=== PATIENT | female | born 1990 | race Caucasian/White ===

== ENCOUNTER → 2020-06-17 15:30 | Outpatient (BNVA) | payer OTHER, SELFPAY | PROVIDERS: Family Provider Family Medicine; Visit Provider Obstetrics & Gynecology | DX: Z12.4 Encounter for screening for malignant neoplasm of cervix (principal); N73.0 Acute parametritis and pelvic cellulitis; N73.9 Female pelvic inflammatory disease, unspecified; N91.2 Amenorrhea, unspecified; N91.1 Secondary amenorrhea; N93.8 Other specified abnormal uterine and vaginal bleeding | CPT/HCPCS: 83001; 84146; 84443; 84702; 85025; 87491; 87591; 88175 ==

== ENCOUNTER → 2020-06-19 09:35 | Outpatient (BNVA) | payer OTHER, SELFPAY | PROVIDERS: Family Provider Family Medicine; Visit Provider Obstetrics & Gynecology | DX: N91.2 Amenorrhea, unspecified (principal) | CPT/HCPCS: 76830 ==

== ENCOUNTER 2022-03-31 11:08 | Observation (INO) | payer OTHER, SELFPAY ==
[2022-03-31] VITALS (10 sets, daily range): BP systolic 132–155; BP diastolic 74–109; PULSE 76–92; RESP 15–20; TEMP 36.8–37.2; O2SAT 97–98; BMI 43.0
[2022-03-31 11:39] LABS: Basophils # 0.1 10^3/uL (0.0-0.1); Basophils % 0.6 %; Eosinophils # 0.1 10^3/uL (0.0-0.8); Eosinophils % 0.9 %; Hematocrit 44.9 % (37.0-47.0); Hemoglobin 14.7 g/dL (11.5-15.3); Lymphocytes # 3.4 10^3/uL (0.8-4.8); Mean Corpuscular HGB Conc 32.7 g/dL (30.0-36.0); Mean Corpuscular Hemoglobin 29.2 pg (28.0-34.0); Mean Corpuscular Volume 89.3 fl (81-99); Mean Platelet Volume 11.4 fL (7.4-10.4); Monocytes # 0.6 10^3/uL (0.2-0.9); Monocytes % 5.1 %; Neutrophils # 8.19 10^3/uL (1.8-7.7); Neutrophils % 65.6 %; Nucleated Red Blood Cells % 0 %; Platelet Count 228 10^3/cmm (130-400); Red Blood Count 5.03 10^6/uL (4.1-5.3); Red Cell Distribution Width 12.1 % (12.1-15.1); White Blood Count 12.5 10^3/uL (4.0-10.0)
[2022-03-31 12:01] LABS: Alanine Aminotransferase 33 U/L (0-33); Alkaline Phosphatase 105 U/L (35-105); Aspartate Amino Transferase 24 U/L (0-32); Blood Urea Nitrogen 7 mg/dL (6-20); Calcium 9.8 mg/dL (8.5-10.5); Carbon Dioxide 24 mmol/L (22-29); Chloride 101 mmol/L (98-107); Globulin 3.4 g/dL (1.3-4.6); Glomerular Filtration Rate 115.9 mL/min (90-130); Glucose 104 mg/dL (65-115); Lipase 26 U/L (13-60); Osmolality Calculated 278 mOsm/kg (285-295); Sodium 135 mmol/L (136-145); Total Bilirubin 0.6 mg/dL (0.15-1.2); Total Protein 7.4 g/dL (6.6-8.7)
[2022-03-31 12:06] LABS: Anion Gap 14.3 (5-19); Potassium 4.3 mmol/L (3.5-5.1)
[2022-03-31] MEDS: morphine 4 mg/mL SDV 1 mL IVP ×2 (12:10→12:48)
[2022-03-31] MEDS: sodium chloride 0.9% 1,000 ML 999 ML IV (12:16)
[2022-03-31] MEDS: ondansetron 2 mg/ML SDV 2 mL 4 MG IVP ×2 (12:19→22:46)
[2022-03-31 12:26] LABS: Bilirubin Urine Negative (Negative); Blood Urine Large (Negative); Glucose Urine UA Negative (Normal); Ketones Urine Negative (Negative); Leukocyte Esterase Urine 1+; Nitrate Urine Positive; Protein Urine 1+ (Negative); Urine Appearance Clear (CLEAR); Urine Color Yellow (Yellow); Urobilinogen Urine 0.2 mg/dL (Negative)
--- NOTE | 2022-03-31 12:31 | CT_ITS ---
WS: [id number] CT ABDOMEN AND PELVIS NONCONTRAST HISTORY: flank pain, LEFT lower quadrant pain. TECHNIQUE: Imaging performed through the abdomen and pelvis. Coronal and sagittal reformats are submi tted. All CT scans at [facility] use at least one of these dose optimization techniques: auto mated exposure control; mA and/or kV adjustment per patient size (includes targeted exams where dose is matched to clinical indication); or iterative reconstruction. DLP: 1602.95 mGy.cm COMPARISON: 03/12/2016 Lower thorax: Lung bases are clear. Visualized heart is normal. No hiatal hernia. Liver: Mild hepatomegaly with diffuse hepatic steatosis. No bile duct dilatation. Gallbladder: Prior cholecystectomy. Pancreas: Normal size and attenuation. Normal pancreatic duct. No pancreatitis or mass. Spleen: Normal. Adrenal glands: Normal. No mass. Right kidney: Normal size kidney. 2 mm nonobstructing calcification lower pole. No ureteral calcifica tion or obstruction. Left kidney: Normal size kidney with no mass or hydronephrosis. Aorta: Normal abdominal aorta, no aneurysm or atherosclerosis. No free fluid, intraperitoneal air or significant lymphadenopathy. GI tract: Nondistended stomach. No small bowel obstruction. Mild constipation. Normal appendix. There are a few diverticula within the distal colon but no evidence for acute diverticulitis. Abdominal wall: Negative. No hernia. Pelvis: Artifact through the pelvis due to patient's body habitus. The uterus is present. Both ovarie s are identified. No free fluid or adenopathy. Osseous structures: Unremarkable. CT/CT kidney stone [id number] IMPRESSION: 1. Normal appendix. 2. No hydronephrosis. 3. 2 mm nonobstructing ossification lower pole RIGHT kidney. 4. Minimal diverticular disease without acute diverticulitis. 5. Hepatic steatosis and mild hepatomegaly. 6. Prior cholecystectomy.
[2022-03-31 12:34] LABS: Add Urine Microscopic? YES
[2022-03-31 12:35] LABS: Add Urine Culture? Yes; Bacteria Urine 1+ /hpf; RBC Urine 0-4 /hpf (0-2); Squamous Epithelial Cell Urine 0-4 /hpf (0-5); WBC Urine 40-55 /hpf (0-5)
--- NOTE | 2022-03-31 13:00 | ED_ITS ---
HPI - Abdominal Pain General: Chief Complaint: Abdominal Pain Stated Complaint: Lower abd pain Time Seen by Provider: 03/31/22 11:29 Source: patient Mode of arrival: ambulatory Limitations: no limitations History of Present Illness: 31-year-old female with a remote history of renal nephrolithiasis presents to the emergency room with complaints of left flank pain for the last 3 to 4 days progressively worse to the point where she could not tolerate Tuesday. She has noted gross hematuria at times she denies any dysuria urgency or frequency. Pain is radiating down into the groin severe enough to double her over. No fever sweats or chills. MD elicited complaint: flank pain Pertinent past history: kidney stones Onset (ago): day(s) (4) Pain Consistency: constant Location: L flank Quality: cramping Radiation: none Exacerbating factors: nothing Relieving factors: nothing Associated Symptoms: Denies anorexia, belching, bloating, change in bowel habits, change in stool character, chills, coffee ground emesis, constipation, GI cramping, diarrhea, dyspepsia, dysuria, excessive flatus, fever(s), heartburn, hematochezia, hematuria, hematemesis, fecal incontinence, loose stools, melena, nausea, poor appetite, syncope and vomiting Review of Systems Const: Denies: fever(s), chills, fatigue or malaise ENMT: Denies: throat pain, ear or mastoid pain, nasal discharge or nasal congestion Card: Denies: chest pain, palpitations, irregular heart rhythm or syncope Resp: Denies: dyspnea, productive cough or non-productive cough GI: Denies: abdominal pain, nausea, vomiting, hematemesis, coffee ground emesis, heartburn, diarrhea, constipation, bloating, GI cramping, belching, excessive flatus, fecal incontinence, change in bowel habits, change in stool character, hematochezia or melena : Denies: flank pain, difficulty voiding, dysuria, urinary frequency or hematuria Skin/Breast: Denies: rash or pruritus PFSH ED PFSH: Medical History Amenorrhea H/O facial injury reconstructive facial surgery- as a young child-- several surgeries to repair Nephrolithiasis PCOS (polycystic ovarian syndrome) Surgical History S/P cholecystectomy 04/2010 Family History Mother Heart disease Hypertension Diabetes Stroke Hyperlipidemia Thyroid condition Anesthesia complication Uterine cancer, Onset Age: 27 Ovarian cancer, Onset Age: 27 Father Diabetes Stroke Hyperlipidemia Heart disease Grandmother Ovarian cancer maternal 28, paternal 27 Uterine cancer maternal and paternal 20's Family/Other Ovarian cancer maternal aunts and cousins, all diagnosed prior to 30 years of age Uterine cancer maternal aunts and cousins Denies family history of Colon cancer Clotting disorder Breast cancer Bleeding disorder Social History Alcohol intake: never Physical Exam Const: COMMON NORMALS: no acute distress GENERAL APPEARANCE: cooperative and comfortable ORIENTATION/CONSCIOUSNESS: Yes awake, Yes oriented to person, Yes oriented to place and Yes oriented to time HENMT: COMMON NORMALS: normocephalic, atraumatic and hearing grossly normal bilaterally HEAD & SCALP: normocephalic and atraumatic Resp: COMMON NORMALS: normal respiratory effort, No retractions, No use of accessory muscles and clear to auscultation bilaterally AUSCULTATION: clear to auscultation bilaterally Cardio: COMMON NORMALS: regular rate, regular rhythm and No murmurs present (Cardio) RATE: regular rate RHYTHM: regular rhythm GI: COMMON NORMALS: Soft to palpation and No hepatosplenomegaly present AUSCULTATION: Yes normoactive bowel sounds PALPATION: Yes Soft to palpation, No Tenderness to palpation present (GI), No Guarding due to palpation present (GI) and Yes No hepatosplenomegaly present Extremity: COMMON NORMALS: normal to inspection, capillary refill normal, no clubbing, cyanosis or edema, no calf tenderness and no pedal edema Neuro: SENSORIUM/ORIENTATION: Yes oriented to person, Yes oriented to place and Yes oriented to time Skin: COMMON NORMALS: no rashes or lesions noted GENERAL SKIN EXAM: no rashes or lesions noted Course Vital Signs: Vital signs: Vital Signs Temperature 98.2 F 03/31/22 11:48 Pulse Rate 76 03/31/22 15:00 Respiratory Rate 18 03/31/22 16:37 Blood Pressure 155/109 03/31/22 11:48 Pulse Oximetry 98 03/31/22 15:00 Oxygen Delivery Me thod 03/31/22 11:48 MDM - Abdominal Pain Medical Decision Making Stone in the right kidney but none in the ureter I think she has a fairly significant pyelonephritis she is having quite a bit of pain. White count is elevated we will go ahead and admit her given 2 g Rocephin here she has had cultures discussed with Dr. Urena. We will admit treat with antibiotics and monitor. Medical Records I reviewed the patient's medical records. Lab Data I reviewed the patient's lab results. : 03/31/22 11:34 03/31/22 11:34 Labs/Radiology: Radiology Impressions Abdomen/Pelvis CT 03/31/22 12:31 IMPRESSION: 1. Normal appendix. 2. No hydronephrosis. 3. 2 mm nonobstructing ossification lower pole RIGHT kidney. 4. Minimal diverticular disease without acute diverticulitis. 5. Hepatic steatosis and mild hepatomegaly. 6. Prior cholecystectomy. Laboratory Results WBC 12.5 10^3/uL (4.0-10.0) H 03/31/22 11:34 RBC 5.03 10^6/uL (4.1-5.3) 03/31/22 11:34 Hgb 14.7 g/dL (11.5-15.3) 03/31/22 11:34 Hct 44.9 % (37.0-47.0) 03/31/22 11:34 MCV 89.3 fl (81-99) 03/31/22 11:34 MCH 29.2 pg (28.0-34.0) 03/31/22 11:34 MCHC 32.7 g/dL (30.0-36.0) 03/31/22 11:34 RDW 12.1 % (12.1-15.1) 03/31/22 11:34 Plt Count 228 10^3/cmm (130-400) 03/31/22 11:34 MPV 11.4 fL (7.4-10.4) H 03/31/22 11:34 Neut % (Auto) 65.6 % 03/31/22 11:34 Lymph % (Auto) 27.0 % 03/31/22 11:34 [place] % (Auto) 5.1 % 03/31/22 11:34 Eos % (Auto) 0.9 % 03/31/22 11:34 Baso % (Auto) 0.6 % 03/31/22 11:34 Neut # (Auto) 8.19 10^3/uL (1.8-7.7) H 03/31/22 11:34 Lymph # (Auto) 3.4 10^3/uL (0.8-4.8) 03/31/22 11:34 [place]inger # (Auto) 0.6 10^3/uL (0.2-0.9) 03/31/22 11:34 Eos # (Auto) 0.1 10^3/uL (0.0-0.8) 03/31/22 11:34 Baso # (Auto) 0.1 10^3/uL (0.0-0.1) 03/31/22 11:34 Nucleated RBC % (auto) 0 % 03/31/22 11:34 Nucleated RBCs # 0.0 /100WBC 03/31/22 11:34 Sodium 135 mmol/L (136-145) L 03/31/22 11:34 Potassium 4.3 mmol/L (3.5-5.1) 03/31/22 11:34 Chloride 101 mmol/L (98-107) 03/31/22 11:34 Carbon Dioxide 24 mmol/L (22-29) 03/31/22 11:34 Anion Gap 14.3 (5-19) 03/31/22 11:34 BUN 7 mg/dL (6-20) 03/31/22 11:34 Creatinine 0.6 mg/dL (0.5-0.9) 03/31/22 11:34 GFR Calculation 115.9 mL/min (90-130) 03/31/22 11:34 Glucose 104 mg/dL (65-115) 03/31/22 11:34 Calculated Osmolality 278 mOsm/kg (285-295) L 03/31/22 11:34 Lactic Acid 0.8 mmol/L (0.5-2.2) 03/31/22 15:56 Calcium 9.8 mg/dL (8.5-10.5) 03/31/22 11:34 Total Bilirubin 0.6 mg/dL (0.15-1.2) 03/31/22 11:34 AST 24 U/L (0-32) 03/31/22 11:34 ALT 33 U/L (0-33) 03/31/22 11:34 Alkaline Phosphatase 105 U/L (35-105) 03/31/22 11:34 Total Protein 7.4 g/dL (6.6-8.7) 03/31/22 11:34 Albumin 4.0 g/dL (3.5-5.2) 03/31/22 11:34 Globulin 3.4 g/dL (1.3-4.6) 03/31/22 11:34 Lipase 26 U/L (13-60) 03/31/22 11:34 Procalcitonin 0.04 ng/mL (0-0.5) 03/31/22 15:56 Urine Color Yellow (Yellow) 03/31/22 12:20 Urine Appearance Clear (CLEAR) 03/31/22 12:20 Urine pH 6.0 (5-7) 03/31/22 12:20 Ur Specific [place] 1.010 (1.005-1.030) 03/31/22 12:20 Urine Protein 1+ (Negative) A 03/31/22 12:20 Urine Glucose (UA) Negative (Normal) 03/31/22 12:20 Urine Ketones Negative (Negative) 03/31/22 12:20 Urine Blood Large (Negative) A 03/31/22 12:20 Urine Nitrate Positive 03/31/22 12:20 Urine Bilirubin Negative (Negative) 03/31/22 12:20 Urine Urobilinogen 0.2 mg/dL (Negative) 03/31/22 12:20 Ur Leukocyte Esterase 1+ 03/31/22 12:20 Urine RBC 0-4 /hpf (0-2) H 03/31/22 12:20 Urine WBC 40-55 /hpf (0-5) H 03/31/22 12:20 Ur Squamous Epith Cells 0-4 /hpf (0-5) H 03/31/22 12:20 Amorphous Sediment Not Reportable 03/31/22 12:20 Urine Bacteria 1+ /hpf (NONE) H 03/31/22 12:20 Urine HCG, Qual Negative (Negative) 03/31/22 12:20 Discharge Plan Discharge Patient Disposition: Admitted As Inpatient Clinical Impression: Pyelonephritis Condition: Stable Prescriptions: No Action Azo 95 mg Tablet 95 mg PO TID PRN (Reason: Urinary Retention) Midol 500-25 mg Tablet 1 tab PO Q6H PRN (Reason: Pain) Flonase Allergy Relief 50 mcg/actuation [place],Suspension 1 spray INTRANASAL BID Rx Instructions: administer into each nostril Referrals: Mika Dyer MD [Primary Care Provider] - Coding Level of Care Code ED Service And Repair Supervisor for Chg Fwd Exam Detailed
[2022-03-31] MEDS: HYDROmorphone 1 mg/mL INJ 1 mL 0.5 MG IVP (13:41)
[2022-03-31] MEDS: cefTRIAXone 2,000 MG in sodium chloride 0.9% (plus) 50 ML 100 MG IV (14:12)
--- NOTE | 2022-03-31 15:47 | PM.HP ---
Providers/Chief Complaint Primary Care Provider: Mika Dyer MD Chief Complaint: Lower abd pain History of Present Illness Sharri Chaney is a 31 year old female Medications/Allergies Home Medications Medication Instructions Recorded Confirmed Last Taken Type acetaminophen-pamabrom 500 mg-25 1 tab PO Q6H PRN Pain 03/31/22 03/31/22 03/30/22 History mg tablet (Midol) fluticasone propionate 50 1 spray intranasal BID 03/31/22 03/31/22 03/31/22 History mcg/actuation nasal spray,suspension (Flonase Allergy Relief) phenazopyridine 95 mg tablet 95 mg PO TID PRN Urinary Retention 03/31/22 03/31/22 Unknown History Allergies Allergy/AdvReac Type Severity Reaction Status Date / Time No Known Allergies Allergy Verified 03/31/22 14:22 PFSH Acute PFSH: Medical History (Updated 03/31/22 @ 13:06 by Haja Ryan DO) Amenorrhea H/O facial injury reconstructive facial surgery- as a young child-- several surgeries to repair Nephrolithiasis PCOS (polycystic ovarian syndrome) Surgical History (Updated 03/31/22 @ 13:06 by Haja Ryan DO) S/P cholecystectomy 04/2010 Family History Mother Heart disease Hypertension Diabetes Stroke Hyperlipidemia Thyroid condition Anesthesia complication Uterine cancer, Onset Age: 27 Ovarian cancer, Onset Age: 27 Father Diabetes Stroke Hyperlipidemia Heart disease Grandmother Ovarian cancer maternal 28, paternal 27 Uterine cancer maternal and paternal 20's Family/Other Ovarian cancer maternal aunts and cousins, all diagnosed prior to 30 years of age Uterine cancer maternal aunts and cousins Denies family history of Colon cancer Clotting disorder Breast cancer Bleeding disorder Social History Alcohol intake: never Vitals/I&O/Wt Last Vital Signs Temp 98.2 F 03/31/22 11:48 Pulse 76 03/31/22 15:00 Resp 18 03/31/22 13:41 BP 155/109 03/31/22 11:48 Pulse Ox 98 03/31/22 15:00 O2 Del Method 03/31/22 11:48 Weight last 48 hrs Weight 136.078 kg Data : 03/31/22 11:34 03/31/22 11:34 Micro: Microbiology 03/31/22 13:52 Blood Culture - Preliminary Blood SPECIMEN COLLECTED 03/31/22 14:10 Blood Culture - Preliminary Blood SPECIMEN COLLECTED Coding Level of Care Code Acute Fisherman Helper for Audra Yang
--- NOTE | 2022-03-31 16:02 | PM.HP ---
Providers/Chief Complaint Primary Care Provider: Mika Dyer MD Chief Complaint: Lower abd pain History of Present Illness Sharri Chaney is a 31 year old female symptoms started around the weekend with flank pain which gradually got worse to the point where she could not bear her pain. She has not noticed any fever, nausea or vomiting. She has history of stones, she usually gets better with passage of stone but this time no stone noticed in her urine. She is experiencing dysuria. She has not noticed any chest pain, shortness of breath, recurrent emesis. In the ER she has been diagnosed with nonobstructing 2 mm stone with pyonephritis She has been given antibiotics in the ER she is not septic white count is 12.5 We do not have urology coverage however she does not meet criteria to be transferred there is no need to extract the stone at this point, she is experiencing a lot of pain requiring opioids patient is stating she does not drink a lot of soda, she has quit smoking 3 weeks ago, does not drink alcohol, she drinks hot tea in the morning and iced tea in the evening Review of Systems Const: Reports: chills and body aches; Denies: fever(s) Eyes: Denies: change in vision ENMT: Denies: throat pain Card: Denies: chest pain Resp: Denies: dyspnea GI: Reports: abdominal pain and nausea : Reports: flank pain Musc: Denies: neck pain Skin/Breast: Denies: rash Neuro: Denies: headache(s) Psych: Reports: anxiety Endo: Denies: polyuria Daren/Lymph: Denies: easy bruising All/Imm: Denies: urticaria Medications/Allergies Home Medications Medication Instructions Recorded Confirmed Last Taken Type acetaminophen-pamabrom 500 mg-25 1 tab PO Q6H PRN Pain 03/31/22 03/31/22 03/30/22 History mg tablet (Midol) fluticasone propionate 50 1 spray intranasal BID 03/31/22 03/31/22 03/31/22 History mcg/actuation nasal spray,suspension (Flonase Allergy Relief) phenazopyridine 95 mg tablet 95 mg PO TID PRN Urinary Retention 03/31/22 03/31/22 Unknown History Allergies Allergy/AdvReac Type Severity Reaction Status Date / Time No Known Allergies Allergy Verified 03/31/22 14:22 PFSH Acute PFSH: Medical History Amenorrhea H/O facial injury reconstructive facial surgery- as a young child-- several surgeries to repair Nephrolithiasis PCOS (polycystic ovarian syndrome) Surgical History S/P cholecystectomy 04/2010 Family History Mother Heart disease Hypertension Diabetes Stroke Hyperlipidemia Thyroid condition Anesthesia complication Uterine cancer, Onset Age: 27 Ovarian cancer, Onset Age: 27 Father Diabetes Stroke Hyperlipidemia Heart disease Grandmother Ovarian cancer maternal 28, paternal 27 Uterine cancer maternal and paternal 20's Family/Other Ovarian cancer maternal aunts and cousins, all diagnosed prior to 30 years of age Uterine cancer maternal aunts and cousins Denies family history of Colon cancer Clotting disorder Breast cancer Bleeding disorder Social History Alcohol intake: never Vitals/I&O/Wt Last Vital Signs Temp 98.2 F 03/31/22 11:48 Pulse 76 03/31/22 15:00 Resp 18 03/31/22 13:41 BP 155/109 03/31/22 11:48 Pulse Ox 98 03/31/22 15:00 O2 Del Method 03/31/22 11:48 Weight last 48 hrs Weight 136.078 kg Physical Exam Narrative: Patient is awake and alert Nonfocal neuro exam Morbidly obese Currently on room air Complaining of flank pain Abdomen is soft Bowel sound present Awake and alert Nonfocal neuro exam Doing well on room air CVA tenderness positive Hypertensive secondary to pain Data : 03/31/22 11:34 03/31/22 11:34 Micro: Microbiology 03/31/22 13:52 Blood Culture - Preliminary Blood SPECIMEN COLLECTED 03/31/22 14:10 Blood Culture - Preliminary Blood SPECIMEN COLLECTED A&P Assessment and plan (1) Nephrolithiasis: (2) Pyelonephritis: Plan Nonobstructing 2 mm stone with pyelonephritis No active signs of sepsis, afebrile No need for urgent urological intervention needed Start IV antibiotics Continue IV fluids We will give her amlodipine and tamsulosin to relax smooth muscles in the sphincter Hopefully she will be able to pass her stone to relieve her symptoms Will give her opioids along bowel regimen Full code Regular diet DVT prophylaxis on board Patient has quit smoking 3 weeks ago Does not drink alcohol Drinks tea twice a day with honey Previous history of nephrolithiasis We will add Pyridium which will change urine color to orange Attestations Medical Necessity Statement*: Anticipating discharge within 42 hours will need IV antibiotics for pyelonephritis and pain control Time Spent in Patient Care: 40 Coding Level of Care Code Acute Tugboat Dispatcher for Audra Yang Diagnoses Nephrolithiasis N20.0 Pyelonephritis N12
[2022-03-31 16:27] LABS: Lactic Sepsis W/Reflex 0.8 mmol/L (0.5-2.2)
[2022-03-31 16:32] LABS: Procalcitonin 0.04 ng/mL (0-0.5)
[2022-03-31] MEDS: sodium chloride 0.9% 1,000 ML 125 ML IV (16:36)
[2022-03-31] MEDS: HYDROmorphone 1 mg/mL INJ 1 mL IVP (16:37)
[2022-03-31] MEDS: phenazopyridine 100 mg Tablet PO ×2 (16:48→20:50)
[2022-03-31] MEDS: tamsulosin 0.4 mg Capsule PO (16:48)
[2022-03-31] MEDS: heparin 5,000 unit/mL INJ 1 mL 5000 UNIT SUBCUT (16:48)
--- NOTE | 2022-03-31 17:52 | PC.NURSE ---
ATTEMPTED REPORT NURSE UNAVAILABLE.
[2022-03-31] MEDS: HYDROmorphone 1 mg/mL INJ 1 mL 0.4 MG IVP (20:58)
[2022-03-31] MEDS: diphenhydrAMINE 25 mg Capsule PO (22:45)
[2022-04-01] VITALS (9 sets, daily range): BP systolic 124–145; BP diastolic 83–88; PULSE 75–84; RESP 16–18; TEMP 36.4–36.8; O2SAT 97–98
[2022-04-01] MEDS: sodium chloride 0.9% 1,000 ML 125 ML IV (00:45)
[2022-04-01] MEDS: HYDROmorphone 1 mg/mL INJ 1 mL 0.4 MG IVP ×2 (00:52→06:01)
[2022-04-01 04:59] LABS: Basophils % 0.5 %; Eosinophils # 0.1 10^3/uL (0.0-0.8); Eosinophils % 1.6 %; Hematocrit 38.8 % (37.0-47.0); Hemoglobin 12.6 g/dL (11.5-15.3); Lymphocytes # 3.1 10^3/uL (0.8-4.8); Lymphocytes % 36.7 %; Mean Corpuscular HGB Conc 32.5 g/dL (30.0-36.0); Mean Corpuscular Hemoglobin 29.3 pg (28.0-34.0); Mean Corpuscular Volume 90.2 fl (81-99); Mean Platelet Volume 12.1 fL (7.4-10.4); Monocytes # 0.5 10^3/uL (0.2-0.9); Monocytes % 6.5 %; Neutrophils # 4.48 10^3/uL (1.8-7.7); Nucleated Red Blood Cells % 0 %; Platelet Count 181 10^3/cmm (130-400); Red Cell Distribution Width 12.2 % (12.1-15.1); White Blood Count 8.3 10^3/uL (4.0-10.0)
[2022-04-01 05:00] LABS: Bilirubin Urine Negative (Negative); Blood Urine Small (Negative); Glucose Urine UA 1+ (Normal); Ketones Urine Negative (Negative); Leukocyte Esterase Urine Trace; Nitrate Urine Positive; Protein Urine Trace (Negative); Urine Appearance Clear (CLEAR); Urine Color Orange (Yellow); pH Urine 5.5 (5-7)
[2022-04-01 05:10] LABS: Add Urine Microscopic? YES
[2022-04-01 05:14] LABS: Add Urine Culture? No; Bacteria Urine 1+ /hpf; Oval Fat Bodies Urine 1+ /hpf; RBC Urine 0-4 /hpf (0-2); Squamous Epithelial Cell Urine 0-4 /hpf (0-5); WBC Urine 15-25 /hpf (0-5)
[2022-04-01 05:27] LABS: Alanine Aminotransferase 42 U/L (0-33); Albumin Level 3.4 g/dL (3.5-5.2); Alkaline Phosphatase 108 U/L (35-105); Anion Gap 13.2 (5-19); Aspartate Amino Transferase 30 U/L (0-32); Blood Urea Nitrogen 6 mg/dL (6-20); Calcium 8.9 mg/dL (8.5-10.5); Carbon Dioxide 24 mmol/L (22-29); Chloride 106 mmol/L (98-107); Globulin 3.2 g/dL (1.3-4.6); Glucose 100 mg/dL (65-115); Magnesium 2.3 mg/dL (1.7-2.3); Osmolality Calculated 286 mOsm/kg (285-295); Potassium 4.2 mmol/L (3.5-5.1); Sodium 139 mmol/L (136-145); Total Bilirubin 0.6 mg/dL (0.15-1.2); Total Protein 6.6 g/dL (6.6-8.7)
[2022-04-01] MEDS: heparin 5,000 unit/mL INJ 1 mL 5000 UNIT SUBCUT ×2 (05:59→16:26)
--- NOTE | 2022-04-01 07:43 | PC.NURSE ---
@0600 pt reported missing $1800, pt stated I had it on me yesterday morning and those girls couldn't get my shirt off fast enough , pt stated he had $1000 in one clip and $800 in another clip, patient stated last time he saw it was yesterday morning when he came here. call placed to to ask if she might know anything about it and stated I wouldn't know if he had money on him or not , nurse asked pt to ask pt sister who was here yesterday about pt money, charge nurse notified, during bedside report pt stated that he talked with his brother and sister and renita has his money.
[2022-04-01] MEDS: diphenhydrAMINE 25 mg Capsule PO ×2 (07:45→20:20)
--- NOTE | 2022-04-01 07:50 | PC.NURSE ---
pt refused cath placement all noc, educated related to need for cath and pt continue to refuse urine strained and small particles noted
[2022-04-01] MEDS: cefTRIAXone 1,000 MG in sodium chloride 0.9% (plus) 50 ML 100 MG IV (07:52)
[2022-04-01] MEDS: amlodipine 5 mg Tablet PO (08:31)
[2022-04-01] MEDS: tamsulosin 0.4 mg Capsule PO (08:31)
[2022-04-01] MEDS: sennosides-docusate Tablet 1 TAB PO (08:31)
[2022-04-01] MEDS: phenazopyridine 100 mg Tablet PO ×3 (08:38→20:20)
--- NOTE | 2022-04-01 09:06 | PC.NURSE ---
I was in the room with the patient when Dr. Queen said that since she is eating her fluids may be discontinued. We will continue the antibiotic but the fluids may be stopped.
--- NOTE | 2022-04-01 10:06 | PM.PN ---
Subjective Subjective: Patient passed stone this morning I have sent stone for analysis Afebrile No leukocytosis Pain is well managed Still feeling nauseous no active emesis Able to tolerate diet Discontinue fluids Continue antibiotics possible discharge tomorrow patient is agreeable Vitals/I&O/Wt Last Vital Signs Temp 97.6 F 04/01/22 07:44 Pulse 75 04/01/22 07:44 Resp 17 04/01/22 07:44 BP 141/88 04/01/22 07:44 Pulse Ox 97 04/01/22 07:44 O2 Del Method 04/01/22 07:44 03/31/22 04/01/22 04/01/22 22:59 06:59 14:59 Intake Total 1050 / 1050 1000 / 2050 1290 / 1290 Output Total 500 / 500 Balance 1050 / 1050 500 / 1550 1290 / 1290 Weight last 48 hrs Weight 136.078 kg Physical Exam Narrative: Patient is laying supine Abdomen is soft Nontender Awake and alert Nonfocal neuro exam Currently on room air EOMI, PERRLA S1, S2 Flank tenderness has improved significantly since yesterday Data : 04/01/22 04:22 04/01/22 04:22 Micro: Microbiology 03/31/22 12:20 Urine Culture - Preliminary Urine,Clean Catch Gram Negative Rods 03/31/22 13:52 Blood Culture - Preliminary Blood SPECIMEN COLLECTED 03/31/22 14:10 Blood Culture - Preliminary Blood SPECIMEN COLLECTED A&P Assessment and plan (1) Pyelonephritis: (2) Nephrolithiasis: Plan Pyelonephritis No signs of sepsis No active emesis Plan to discharge her tomorrow Patient passed kidney stones today Will send stone for analysis Continue IV antibiotic Discontinue fluids Continue diet Opioids with bowel regimen Plan for discharge tomorrow DVT prophylaxis on board Full code Attestations Medical Necessity Statement*: Discharge tomorrow Time Spent in Patient Care: 40 Coding Level of Care Code Acute Compensation And Benefits Manager for [facility] Fwd Diagnoses Pyelonephritis N12 Nephrolithiasis N20.0
--- NOTE | 2022-04-01 10:59 | PC.NURSE ---
Patient resting in room. Reports no pain but does report burning sensation in urinary tract. Refusing morphine at this time. Does want to hold off on the urinary catheter as well.
[2022-04-01] MEDS: ondansetron 2 mg/ML SDV 2 mL 4 MG IVP (13:49)
[2022-04-01] MEDS: acetaminophen 325 mg Tablet PO (13:50)
--- NOTE | 2022-04-01 15:44 | PC.NURSE ---
I went downstairs to collect the bladder scanner to scan Ms. Chaney and when I got back up on the floor I was told my patient was not in the room. Mami Osborn RN, and myself walked to each entrance of the hospital looking for her and couldn't locate her. When I returned upstairs, Keyana Glynn RN, had called the patient and she stated her legs hurt and she was walking around the hospital to relieve some pain.
[2022-04-01] MEDS: morphine 4 mg/mL SDV 1 mL IVP (16:17)
[2022-04-02] VITALS: BP 123/85; PULSE 70; RESP 17; TEMP 36.3; O2SAT 97
[2022-04-02 04:00] VITALS: BP 108/72; PULSE 67; RESP 17; TEMP 36.5; O2SAT 96
[2022-04-02] MEDS: heparin 5,000 unit/mL INJ 1 mL 5000 UNIT SUBCUT (06:56)
[2022-04-02 08:00] VITALS: BP 131/87; PULSE 76; RESP 16; TEMP 36.6; O2SAT 96
[2022-04-02] MEDS: amlodipine 5 mg Tablet PO (08:48)
[2022-04-02] MEDS: tamsulosin 0.4 mg Capsule PO (08:48)
[2022-04-02] MEDS: phenazopyridine 100 mg Tablet PO (08:48)
[2022-04-02] MEDS: sennosides-docusate Tablet 1 TAB PO (08:48)
--- NOTE | 2022-04-02 09:54 | PM.DCS ---
Discharge Providers Date of Admission: 03/31/22 16:36 Date of Discharge: April 02, 2022 Attending Provider at Admission: Calvin Queen MD Attending Provider at Discharge: Calvin Queen MD Primary Care Provider: Mika Dyer MD Diagnoses at Discharge Discharge Diagnosis (1) Pyelonephritis: Status: Acute (2) Nephrolithiasis: Status: Acute Reason for Visit Reason for Visit: Lower abd pain Hospital Course Hospital Course 31-year female who was admitted for management of UTI, excruciating CVA tenderness, 2 mm nonobstructing right kidney lower pole stone which she passed within next 24 hours, she was kept in the hospital for pain management, she did not spike fever, no active emesis blood culture remain negative. No worsening of leukocytosis. Urine culture positive for gram-negative rods. She was given levofloxacin 10-day regimen along opioids and bowel regimen. Stone has been sent for analysis I have asked her to follow-up with her PCP to know the composition of her stone. Physical Exam Narrative: Patient is awake and alert Nonfocal neuro exam Morbidly obese Currently on room air Complaining of flank pain Abdomen is soft Bowel sound present Awake and alert Nonfocal neuro exam Doing well on room air CVA tenderness improved Discharge Data Studies Completed and Pending Completed Studies During Hospitalization Category Date Time Status [place] kidney stone [id number] Stat Cat Scan 03/31/22 12:31 Completed Pending at discharge Category Date Time Status Blood Culture Stat Lab 03/31/22 13:52 Results Stone Analysis Routine Lab 04/01/22 09:18 Uncollected Urine Culture Stat Lab 03/31/22 12:20 Results Radiology Impressions Abdomen/Pelvis CT 03/31/22 12:31 IMPRESSION: 1. Normal appendix. 2. No hydronephrosis. 3. 2 mm nonobstructing ossification lower pole RIGHT kidney. 4. Minimal diverticular disease without acute diverticulitis. 5. Hepatic steatosis and mild hepatomegaly. 6. Prior cholecystectomy. Laboratory Results WBC 8.3 10^3/uL (4.0-10.0) 04/01/22 04:22 RBC 4.30 10^6/uL (4.1-5.3) 04/01/22 04:22 Hgb 12.6 g/dL (11.5-15.3) 04/01/22 04:22 Hct 38.8 % (37.0-47.0) 04/01/22 04:22 MCV 90.2 fl (81-99) 04/01/22 04:22 MCH 29.3 pg (28.0-34.0) 04/01/22 04:22 MCHC 32.5 g/dL (30.0-36.0) 04/01/22 04:22 RDW 12.2 % (12.1-15.1) 04/01/22 04:22 Plt Count 181 10^3/cmm (130-400) 04/01/22 04:22 MPV 12.1 fL (7.4-10.4) H 04/01/22 04:22 Neut % (Auto) 54.0 % 04/01/22 04:22 Lymph % (Auto) 36.7 % 04/01/22 04:22 [place] % (Auto) 6.5 % 04/01/22 04:22 Eos % (Auto) 1.6 % 04/01/22 04:22 Baso % (Auto) 0.5 % 04/01/22 04:22 Neut # (Auto) 4.48 10^3/uL (1.8-7.7) 04/01/22 04:22 Lymph # (Auto) 3.1 10^3/uL (0.8-4.8) 04/01/22 04:22 [place] # (Auto) 0.5 10^3/uL (0.2-0.9) 04/01/22 04:22 Eos # (Auto) 0.1 10^3/uL (0.0-0.8) 04/01/22 04:22 Baso # (Auto) 0.0 10^3/uL (0.0-0.1) 04/01/22 04:22 Nucleated RBC % (auto) 0 % 04/01/22 04:22 Nucleated RBCs # 0.0 /100WBC 04/01/22 04:22 Sodium 139 mmol/L (136-145) 04/01/22 04:22 Potassium 4.2 mmol/L (3.5-5.1) 04/01/22 04:22 Chloride 106 mmol/L (98-107) 04/01/22 04:22 Carbon Dioxide 24 mmol/L (22-29) 04/01/22 04:22 Anion Gap 13.2 (5-19) 04/01/22 04:22 BUN 6 mg/dL (6-20) 04/01/22 04:22 Creatinine 0.7 mg/dL (0.5-0.9) 04/01/22 04:22 GFR Calculation 97.0 mL/min (90-130) 04/01/22 04:22 Glucose 100 mg/dL (65-115) 04/01/22 04:22 Calculated Osmolality 286 mOsm/kg (285-295) 04/01/22 04:22 Lactic Acid 0.8 mmol/L (0.5-2.2) 03/31/22 15:56 Calcium 8.9 mg/dL (8.5-10.5) 04/01/22 04:22 Magnesium 2.3 mg/dL (1.7-2.3) 04/01/22 04:22 Total Bilirubin 0.6 mg/dL (0.15-1.2) 04/01/22 04:22 AST 30 U/L (0-32) 04/01/22 04:22 ALT 42 U/L (0-33) H 04/01/22 04:22 Alkaline Phosphatase 108 U/L (35-105) H 04/01/22 04:22 Total Protein 6.6 g/dL (6.6-8.7) 04/01/22 04:22 Albumin 3.4 g/dL (3.5-5.2) L 04/01/22 04:22 Globulin 3.2 g/dL (1.3-4.6) 04/01/22 04:22 Lipase 26 U/L (13-60) 03/31/22 11:34 Procalcitonin 0.04 ng/mL (0-0.5) 03/31/22 15:56 Urine Color [place] (Yellow) A 04/01/22 04:40 Urine Appearance Clear (CLEAR) 04/01/22 04:40 Urine pH 5.5 (5-7) 04/01/22 04:40 Ur Specific [place] 1.020 (1.005-1.030) 04/01/22 04:40 Urine Protein Trace (Negative) A 04/01/22 04:40 Urine Glucose (UA) 1+ (Normal) H 04/01/22 04:40 Urine Ketones Negative (Negative) 04/01/22 04:40 Urine Blood Small (Negative) A 04/01/22 04:40 Urine Nitrate Positive 04/01/22 04:40 Urine Bilirubin Negative (Negative) 04/01/22 04:40 Urine Urobilinogen 1.0 mg/dL (Negative) 04/01/22 04:40 Ur Leukocyte Esterase Trace 04/01/22 04:40 Urine RBC 0-4 /hpf (0-2) H 04/01/22 04:40 Urine WBC 15-25 /hpf (0-5) H 04/01/22 04:40 Ur Squamous Epith Cells 0-4 /hpf (0-5) H 04/01/22 04:40 Amorphous Sediment Not Reportable 04/01/22 04:40 Urine Bacteria 1+ /hpf (NONE) H 04/01/22 04:40 Ur Oval Fat Bodies 1+ /hpf 04/01/22 04:40 Urine HCG, Qual Negative (Negative) 03/31/22 12:20 Vitals Last Vital Signs Temp 97.8 F 04/02/22 08:00 Pulse 76 04/02/22 08:00 Resp 16 04/02/22 08:00 BP 131/87 04/02/22 08:00 Pulse Ox 96 04/02/22 08:00 O2 Del Method 04/02/22 08:00 Discharge Plan Discharge Patient Disposition: Home Condition: Stable Prescriptions: New oxycodone 10 mg tablet 10 mg PO DAILY Qty: 10 0RF levofloxacin 750 mg tablet 750 mg PO DAILY 10 Days Qty: 10 0RF sennosides-docusate sodium [Senna-S] 8.6-50 mg tablet 1 tab-cap PO DAILY Qty: 10 0RF Continued Azo 95 mg Tablet 95 mg PO TID PRN (Reason: Urinary Retention) Midol 500-25 mg Tablet 1 tab PO Q6H PRN (Reason: Pain) Flonase Allergy Relief 50 mcg/actuation [place],Suspension 1 spray INTRANASAL BID Rx Instructions: administer into each nostril Discharge Orders: Discharge Order (Routine); Ordered 04/02/22 Ordered By: Calvin Queen Referrals: Mika Dyer MD [Primary Care Provider] - 04/05/22 10:15 am Patient Instructions: Kidney Stones (DC), Urinary Tract Infection in Women (DC), Opioid Safety Discharge Attestations Time Spent in Discharge Care*: less than 30 min Quality Metrics Clinical Quality Measures [ No reported AMI, CVA or VTE this stay] Coding Level of Care Code Acute Chg FW DC note Diagnoses Pyelonephritis N12 Nephrolithiasis N20.0
[2022-04-02 11:56] VITALS: BP 136/93; PULSE 71; RESP 16; TEMP 36.8; O2SAT 95
[2022-04-02 12:32] VITALS: BP 136/93; PULSE 71; RESP 16; TEMP 36.8; O2SAT 95
== END 2022-04-02 12:35 | disposition home or self-care (01) ==
LOC: ER 17:34 → MEDSURG 17:48
PROVIDERS: Emergency Medicine; Internal Medicine; Admitting Provider Internal Medicine; Emergency Provider Family Medicine; PCP Family Medicine; Visit Provider Internal Medicine
DX: N12 Tubulo-interstitial nephritis, not specified as acute or chronic (principal); N20.0 Calculus of kidney
CPT/HCPCS: 36415; 74176; 80053; 81001; 81025; 83605; 83690; 83735; 84145; 85025; 87040; 87077; 87086; 87186; 96365; 96366; 96372; 96375; 96376; 99285; G0378; J0696; J1170; J1644; J2270; J2405; J7030

== ENCOUNTER → 2022-04-27 11:48 | Outpatient (BNVA) | payer OTHER, SELFPAY | PROVIDERS: PCP Family Medicine; Visit Provider Emergency Medicine | DX: S99.921A Unspecified injury of right foot, initial encounter (principal); W18.40XA Slipping, tripping and stumbling without falling, unspecified, initial encounter | CPT/HCPCS: 73630 ==

== ENCOUNTER → 2022-09-30 08:47 | Outpatient (BNVA) | payer OTHER, SELFPAY | PROVIDERS: PCP Family Medicine; Visit Provider Family Medicine | DX: E28.2 Polycystic ovarian syndrome (principal) | CPT/HCPCS: 80053; 84439; 84443; 85025 ==

== ENCOUNTER → 2022-12-16 17:43 | Outpatient (BNVA) | payer OTHER, SELFPAY | PROVIDERS: PCP Family Medicine; Visit Provider Emergency Medicine | DX: M79.671 Pain in right foot (principal) | CPT/HCPCS: 73630 ==

== ENCOUNTER → 2023-02-22 12:14 | Outpatient (BNVA) | payer OTHER, SELFPAY | PROVIDERS: PCP Family Medicine; Visit Provider Nurse Practitioner Women's Health | DX: E28.2 Polycystic ovarian syndrome (principal) | CPT/HCPCS: 76830 ==

== ENCOUNTER 2023-03-03 16:00 | Outpatient (CLI) | payer OTHER, SELFPAY | END 2023-03-03 16:01 | disposition home or self-care (01) | LOC: SLEEP 03-04 11:08 | PROVIDERS: PCP Family Medicine; Visit Provider Family Medicine | DX: G47.30 Sleep apnea, unspecified (principal); R06.83 Snoring | CPT/HCPCS: G0399 ==

== ENCOUNTER → 2023-04-27 10:47 | Outpatient (BNVA) | payer OTHER, SELFPAY | PROVIDERS: PCP Family Medicine; Visit Provider Nurse Practitioner Women's Health | DX: Z30.017 Encounter for initial prescription of implantable subdermal contraceptive | CPT/HCPCS: 81025 ==

== ENCOUNTER 2023-11-19 21:28 | Emergency (ER) | payer OTHER, SELFPAY ==
[2023-11-19 22:00] VITALS: BP 136/93; PULSE 90; RESP 17; TEMP 36.6; O2SAT 100; BMI 44.3
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
[2023-11-20 00:23] VITALS: RESP 18
[2023-11-20] MEDS: ondansetron 4 MG Tablet PO (00:23)
[2023-11-20] MEDS: HYDROmorphone 1 mg/mL INJ 1 mL 2 MG IM (00:23)
[2023-11-20] MEDS: diphenhydrAMINE 50 mg/mL SDV 1mL IM (00:23)
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
[2023-11-20 01:35] VITALS: RESP 18
[2023-11-20] MEDS: oxyCODONE-APAP 5-325 mg Tablet 2 TAB PO (01:35)
[2023-11-20 01:45] VITALS: PULSE 87; RESP 18; O2SAT 97
--- NOTE | 2023-11-20 01:47 | PC.NURSE ---
Patient was given 1 tablet of oxycodone, and sent home with 1 tablet of oxycodone; witnessed and signed behind by Yohana NERI. Patient verbalized education on taking medication as directed.
== END 2023-11-20 01:47 | disposition home or self-care (01) ==
PROVIDERS: Emergency Provider Emergency Medicine; PCP Family Medicine
DX: S16.1XXA Strain of muscle, fascia and tendon at neck level, initial encounter (principal); S42.302A Unspecified fracture of shaft of humerus, left arm, initial encounter for closed fracture; Z87.891 Personal history of nicotine dependence; V86.59XA Driver of other special all-terrain or other off-road motor vehicle injured in nontraffic accident, initial encounter
CPT/HCPCS: 29240; 72125; 73060; 96372; 99284; J1170; J1200; Q0162

== ENCOUNTER 2023-11-22 09:08 | Emergency (ER) | payer OTHER, SELFPAY ==
[2023-11-22 09:27] VITALS: BP 134/92; PULSE 84; RESP 16; TEMP 36.7; O2SAT 97; BMI 48.7
--- NOTE | 2023-11-22 09:58 | PC.NURSE ---
ORTHO CALLED, [facility] CONTACT SPECIALIST ANSWERED AND READ PER DR MONAHAN PATIENT WILL NEED TO BE SEEN ELSEWHERE DUE TO THE NATURE OF INJURY AND WILL MOST LIKELY NEED SURGERY.
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
[2023-11-22] MEDS: ondansetron 4 MG Tablet PO (11:11)
[2023-11-22] MEDS: HYDROcodone-acetaminophen 7.5-325 mg Tablet 1 TAB PO (11:11)
[2023-11-22 11:13] VITALS: BP 178/117; PULSE 76; RESP 17; O2SAT 98
[2023-11-22] MEDS: hyDROXYzine 25 mg Capsule 50 MG PO (12:20)
== END 2023-11-22 12:55 | disposition home or self-care (01) ==
PROVIDERS: Emergency Provider Physician Assistant; PCP Family Medicine
DX: S42.302A Unspecified fracture of shaft of humerus, left arm, initial encounter for closed fracture (principal); Z87.891 Personal history of nicotine dependence; V86.95XA Unspecified occupant of 3- or 4- wheeled all-terrain vehicle (ATV) injured in nontraffic accident, initial encounter
CPT/HCPCS: 99283; Q0162

== ENCOUNTER → 2023-11-29 10:50 | Outpatient (BNVA) | payer OTHER, SELFPAY | PROVIDERS: PCP Family Medicine; Visit Provider Orthopaedic Surgery | DX: S42.332A Displaced oblique fracture of shaft of humerus, left arm, initial encounter for closed fracture (principal); M25.512 Pain in left shoulder; M25.532 Pain in left wrist; X58.XXXA Exposure to other specified factors, initial encounter | CPT/HCPCS: 73030; 73060; 73100 ==

== ENCOUNTER 2023-12-02 10:37 | Day surgery (SDC) | payer OTHER, SELFPAY ==
[2023-12-02] VITALS (11 sets, daily range): BP systolic 133–171; BP diastolic 79–99; PULSE 66–78; RESP 14–23; TEMP 36.2–36.3; O2SAT 95–100; BMI 50.2
--- NOTE | 2023-12-02 10:48 | SC_ITS ---
WS: [id number] INTRAOPERATIVE TECHNIQUE: 4 Spot fluoroscopic images for intraoperative purposes. FLUOROSCOPY TIME: 14.2 seconds CLINICAL INFORMATION: Surgery FINDINGS: Intraoperative changes plate and screw fixation LEFT humerus. Anatomic alignment. Fixation plate appe ars in good position. SC/C-arm FL for Drainage [id number] IMPRESSION: Images obtained for intraoperative purposes.
[2023-12-02] MEDS: sodium chloride 0.9% 1,000 ML 30 ML IV (11:40)
--- NOTE | 2023-12-02 11:58 | W.PM.OPSUD ---
Surgery/Procedure H&P Update DATE OF PROCEDURE: December 02, 2023 DATE H&P PERFORMED: 11/29/23 H&P UPDATE INFORMATION: I have reviewed H&P completed within last 30 days, I have examined patient prior to procedure and No changes to prior documentation PREOP DIAGNOSIS: Left humerus fracture PLANNED PROCEDURE: Operation Date: 12/02/23 12:40 Proposed Procedures p Left ORIF Midshaft Humerus(Left) - Matthias Strong DO
[2023-12-02] MEDS: ceFAZolin 3,000 MG in sodium chloride 0.9% (100 ml) 100 ML 200 MG IV (12:24)
--- NOTE | 2023-12-02 13:16 | ANES.PROC ---
Anesthesia Procedures Procedure/Date: 12/02/23 Nerve Block ^: Nerve Block 1: Main Anesthesia: general anesthesia Time Out Performed: Yes Consent: requested by attending/covering physician, from patient, from other, risks and benefits reviewed, patient agrees to proceed and emergency procedure Anesthesia monitors applied: pulse oximetry, EKG, BP cuff and oxygen Nerve block position: semi sitting Anesthetic Used: ropivicaine 0.5% (30 ml) and with decadron (4 mg) Ultrasound used to: recognize landmarks, visualize and ID brachial plexus, in supraclavicular region and visualize and ID interscalene groove Nerve Stimulator Used?: No Interscalene/Femoral BLK: 4 stimuplex 21 g needle used for position and inplane approach, visualize local anesthetic spread and no vascular puncture identified Patient Tolerated Procedure: well and no complications Complications: none
--- NOTE | 2023-12-02 14:16 | PM.OP ---
Operative Report Date of procedure: December 02, 2023 Pre-op diagnosis: Left humerus fracture Post-op diagnosis: same Procedure done: Left humerus open reduction internal fixation Surgeon: Matthias Strong DO Estimated blood loss (mL): 50 Procedure: Left humerus open reduction internal fixation Please read to have procedure after undergoing anesthesia was placed in the prone position. All areas impingement well-padded. Patient's prepped draped normal sterile fashion. Skin incision was made over the posterior aspect of the arm. Tricep fascia was identified and split. The radial nerve was then identified. Nora drain was placed around the radial nerve. Radial nerve was intact there was some bruising however it was completely intact. The fracture was reduced and then a lag screw was placed from medial to lateral. Next a 10 hole large frag plate was placed on the posterior aspect of the humerus. 4 screws were placed proximal to the fracture 4 screws were placed distal to the fracture. AP lateral fluoroscopy ensured that the fracture and hardware in good position. Wounds were irrigated and closed with Vicryl suture and a[place]. Sterile dressings were applied patient was transferred to the PACU in stable condition.
[2023-12-02] MEDS: morphine IR 15 mg Tablet PO (15:40)
== END 2023-12-02 15:59 | disposition home or self-care (01) ==
PROVIDERS: PCP Family Medicine; Visit Provider Orthopaedic Surgery
PROC: (CPT 24515; principal; 2023-12-02 12:30)
DX: S42.302A Unspecified fracture of shaft of humerus, left arm, initial encounter for closed fracture (principal); X58.XXXA Exposure to other specified factors, initial encounter
CPT/HCPCS: 24515; 75989; C1713; J0330; J0690; J1100; J1200; J2250; J2405; J2704; J2710; J2795; J3010; J3490; J7030

== ENCOUNTER 2023-12-05 06:00 | Outpatient (CLI) | payer OTHER, SELFPAY | END 2023-12-05 06:01 | disposition home or self-care (01) | LOC: SPT 12-06 11:21 | PROVIDERS: PCP Family Medicine; Visit Provider Family Medicine | DX: Z46.89 Encounter for fitting and adjustment of other specified devices (principal); M21.332 Wrist drop, left wrist | CPT/HCPCS: L3908 ==

== ENCOUNTER 2023-12-22 07:31 | Outpatient (RCR) | payer OTHER, SELFPAY | END 2024-01-01 23:59 | disposition home or self-care (01) | LOC: SOT 07:31 | PROVIDERS: Visit Provider Orthopaedic Surgery | DX: S42.302D Unspecified fracture of shaft of humerus, left arm, subsequent encounter for fracture with routine healing (principal); X58.XXXD Exposure to other specified factors, subsequent encounter | CPT/HCPCS: 97760; L3766 ==

== ENCOUNTER → 2023-12-29 09:50 | Outpatient (BNVA) | payer OTHER, SELFPAY | PROVIDERS: PCP Family Medicine; Visit Provider Orthopaedic Surgery | DX: Z98.890 Other specified postprocedural states (principal); S42.332A Displaced oblique fracture of shaft of humerus, left arm, initial encounter for closed fracture; X58.XXXA Exposure to other specified factors, initial encounter | CPT/HCPCS: 73060 ==

== ENCOUNTER 2024-01-12 06:00 | Outpatient (RCR) | payer OTHER, SELFPAY | END 2024-02-01 23:59 | disposition home or self-care (01) | LOC: SOT 06:00 | PROVIDERS: PCP Family Medicine; Visit Provider Orthopaedic Surgery | DX: S42.302D Unspecified fracture of shaft of humerus, left arm, subsequent encounter for fracture with routine healing (principal); X58.XXXD Exposure to other specified factors, subsequent encounter | CPT/HCPCS: 97022; 97110; 97140; 97165 ==

== ENCOUNTER → 2024-01-12 08:25 | Outpatient (BNVA) | payer OTHER, SELFPAY | PROVIDERS: PCP Family Medicine; Visit Provider Orthopaedic Surgery | DX: S42.332A Displaced oblique fracture of shaft of humerus, left arm, initial encounter for closed fracture (principal); X58.XXXA Exposure to other specified factors, initial encounter | CPT/HCPCS: 73060 ==

== ENCOUNTER 2024-01-12 11:51 | Outpatient (RCR) | payer OTHER, SELFPAY | END 2024-02-01 23:59 | disposition home or self-care (01) | LOC: SPT 11:51 | PROVIDERS: PCP Family Medicine; Visit Provider Orthopaedic Surgery | DX: Z47.89 Encounter for other orthopedic aftercare (principal) | CPT/HCPCS: 97110; 97161 ==

== ENCOUNTER 2024-02-02 06:00 | Outpatient (RCR) | payer OTHER, SELFPAY | END 2024-03-03 23:59 | disposition home or self-care (01) | LOC: SOT 06:00 | PROVIDERS: PCP Family Medicine; Visit Provider Orthopaedic Surgery | DX: S42.302D Unspecified fracture of shaft of humerus, left arm, subsequent encounter for fracture with routine healing (principal); X58.XXXD Exposure to other specified factors, subsequent encounter | CPT/HCPCS: 97022; 97110; 97112; 97140; G0283 ==

== ENCOUNTER → 2024-03-15 15:37 | Outpatient (BNVA) | payer OTHER, SELFPAY | PROVIDERS: PCP Family Medicine; Visit Provider Orthopaedic Surgery | DX: S42.332A Displaced oblique fracture of shaft of humerus, left arm, initial encounter for closed fracture (principal); X58.XXXA Exposure to other specified factors, initial encounter | CPT/HCPCS: 73060 ==

== ENCOUNTER 2024-03-26 16:01 | Emergency (ER) | payer OTHER, SELFPAY ==
[2024-03-26 16:07] VITALS: BP 126/84; PULSE 86; RESP 17; TEMP 36.4; O2SAT 99; BMI 48.7
[2024-03-26 16:57] LABS: Basophils # 0.1 10^3/uL (0.0-0.1); Basophils % 0.4 %; Eosinophils % 0.1 %; Hematocrit 45.3 % (36-47); Lymphocytes # 2.1 10^3/uL (0.8-4.8); Lymphocytes % 12.3 %; Mean Corpuscular HGB Conc 33.6 g/dL (30-55); Mean Corpuscular Hemoglobin 28.4 pg (27-33); Mean Corpuscular Volume 84.7 fl (85-98); Mean Platelet Volume 11.8 fL (7.4-10.4); Monocytes # 0.6 10^3/uL (0.2-0.9); Monocytes % 3.2 %; Neutrophils # 14.21 10^3/uL (1.8-7.7); Neutrophils % 83.1 %; Nucleated Red Blood Cells % 0 %; Platelet Count 347 10^3/cmm (157-399); Red Blood Count 5.35 10^6/uL (3.85-5.65); Red Cell Distribution Width 12.7 % (12.1-15.1)
[2024-03-26 17:19] LABS: HCG, Serum Qual Negative (Negative)
[2024-03-26 17:26] LABS: Alanine Aminotransferase 21 U/L (0-33); Albumin Level 4.7 g/dL (3.5-5.2); Alkaline Phosphatase 133 U/L (35-105); Anion Gap 20.9 (5-19); Aspartate Amino Transferase 17 U/L (0-32); Blood Urea Nitrogen 12 mg/dL (6-20); Calcium 9.5 mg/dL (8.5-10.5); Carbon Dioxide 18 mmol/L (22-29); Chloride 100 mmol/L (98-107); Globulin 3.4 g/dL (1.3-4.6); Glomerular Filtration Rate 95.8 mL/min (90-130); Glucose 153 mg/dL (65-115); Lipase 34 U/L (13-60); Osmolality Calculated 283 mOsm/kg (285-295); Potassium 3.9 mmol/L (3.5-5.1); Sodium 135 mmol/L (136-145); Total Bilirubin 0.5 mg/dL (0.15-1.2); Total Protein 8.1 g/dL (6.6-8.7)
== END 2024-03-26 17:49 | disposition left against medical advice (07) ==
LOC: ER 16:13
PROVIDERS: Physician Assistant; Emergency Provider Family Medicine; PCP Family Medicine
DX: Z53.21 Procedure and treatment not carried out due to patient leaving prior to being seen by health care provider (principal)
CPT/HCPCS: 36415; 80053; 83690; 84703; 85025

== ENCOUNTER 2024-04-29 14:59 | Emergency (ER) | payer OTHER, SELFPAY ==
[2024-04-29 15:08] VITALS: BP 137/87; PULSE 87; RESP 18; TEMP 36.7; O2SAT 97; BMI 44.7
[2024-04-29 15:29] LABS: Basophils # 0.1 10^3/uL (0.0-0.1); Basophils % 0.6 %; Eosinophils # 0.1 10^3/uL (0.0-0.8); Eosinophils % 0.6 %; Hematocrit 42.3 % (36-47); Lymphocytes # 2.4 10^3/uL (0.8-4.8); Lymphocytes % 29.5 %; Mean Corpuscular HGB Conc 33.6 g/dL (30-55); Mean Corpuscular Hemoglobin 28.6 pg (27-33); Mean Corpuscular Volume 85.3 fl (85-98); Mean Platelet Volume 11.3 fL (7.4-10.4); Monocytes # 0.5 10^3/uL (0.2-0.9); Monocytes % 5.6 %; Neutrophils # 5.11 10^3/uL (1.8-7.7); Neutrophils % 63.5 %; Nucleated Red Blood Cells % 0 %; Platelet Count 258 10^3/cmm (157-399); Red Blood Count 4.96 10^6/uL (3.85-5.65); Red Cell Distribution Width 13.1 % (12.1-15.1); White Blood Count 8.06 10^3/uL (3.29-11.43)
--- NOTE | 2024-04-29 15:37 | CTR_ITS ---
PROCEDURE INFORMATION: Exam: CT Abdomen And Pelvis Without Contrast Exam date and time: 04/29/2024 3:59 PM Age: 33 years old Clinical indication: Abdominal pain; Flank; Right; Prior surgery; Surgery date: 6+ months; Surgery type: Gb; Additional info: R flank/abd pain TECHNIQUE: Imaging protocol: Computed tomography of the abdomen and pelvis without contrast. Radiation optimization: All CT scans at this facility use at least one of these dose optimization techniques: automated exposure control; mA and/or kV adjustment per patient size (includes targeted exams where dose is matched to clinical indication); or iterative reconstruction. COMPARISON: CT kidney stone [id number] 03/31/2022 12:56 PM RADIATION DOSE METRICS: Total DLP (mGy-cm): 1315.93 FINDINGS: Lungs: No significant pathology at the imaged lung bases. Liver: Hepatic steatosis. Gallbladder and biliary ducts: Prior cholecystectomy. No biliary dilatation. Pancreas: No significant pancreatic pathology. Spleen: Mild splenomegaly 14.5 cm without significant change. Adrenal glands: No significant adrenal pathology. Kidneys and ureters: No significant pathology. Stomach and bowel: No significant pathology. Appendix: Appendix within normal limits. Intraperitoneal space: No ascites. Vasculature: No abdominal aortic aneurysm. Lymph nodes: No evidence of lymphadenopathy. Urinary bladder: No urinary calculus or upper tract obstruction. Urinary bladder is nondistended limiting assessment of the wall. Reproductive: Unchanged mildly lobulated uterus. No significant adnexal pathology. Bones/joints: No significant bony pathology. Soft tissues: Tiny fat containing umbilical hernia. CT/CT kidney stone [id number] IMPRESSION: 1. No acute pathology. 2. Minor findings noted above including hepatic steatosis and mild splenomegaly.
--- NOTE | 2024-04-29 15:38 | ED_ITS ---
HPI - Female Genitourinary 2 General: Chief complaint: Urogenital-Female Stated complaint: right side pain, burning when using bathrooom Time Seen by Provider: 04/29/24 15:30 Source: patient Mode of arrival: ambulatory Limitations: no limitations History of Present Illness: 33-year-old female states she has been h aving some flank lower abdominal pain since last night states she also been having severe burning with urination. States pain is a 7 out of 10 she had some nausea as well she denies any fever denies any vaginal bleeding. Associated symptoms: Reports abdominal pain and nausea; Deny headache(s) Related Data Previous Rx's Medication Instructions Recorded albuterol sulfate 90 mcg/actuation 2 puff inhalation Q4H PRN 05/12/23 aerosol inhaler (Ventolin HFA) shortness of breath or wheezing #8.5 grams Cockup spliint, left wist #1 ea 12/05/23 fluticasone propionate 50 2 spray intranasal DAILY PRN 12/13/23 mcg/actuation nasal allergy symptoms #16 grams spray,suspension (Flonase Allergy Relief) norethindrone (contraceptive) 0.35 0.35 mg PO DAILY #84 tabs 01/25/24 mg tablet spironolactone 100 mg tablet 100 mg PO BID #120 tabs 03/19/24 venlafaxine 150 mg 150 mg PO DAILY #60 caps 03/19/24 capsule,extended release 24 hr pantoprazole 40 mg tablet,delayed 40 mg PO DAILY #30 tabs 03/28/24 release gabapentin 100 mg capsule 200 mg (2 x 100 mg) PO BID #180 04/25/24 caps buspirone 7.5 mg tablet 7.5 mg PO BID #30 tabs 04/27/24 loratadine 10 mg tablet 10 mg PO DAILY #90 tabs 04/27/24 ondansetron HCl 4 mg tablet 4 mg PO Q8H PRN nausea and 04/27/24 vomiting #30 tabs sumatriptan succinate 50 mg tablet See Rx Instructions .Route 04/27/24 .COMPLEX #9 tabs triamcinolone acetonide 0.1 % 1 applic topical BID PRN psoriasis 04/27/24 topical ointment 2 weeks #30 grams cephalexin 500 mg capsule 500 mg PO TID 7 days #21 caps 04/29/24 naproxen 500 mg tablet (Naprosyn) 500 mg PO BID PRN pain #20 tabs 04/29/24 Allergies Allergy/AdvReac Type Severity Reaction Status Date / Time Bleach (Sodium Hypochlorite) Allergy Mild ALGY-Rash Verified 04/25/24 14:51 latex Allergy Mild rash Verified 04/25/24 14:51 hydromorphone [From Dilaudid] Allergy ADR-Itching Verified 04/25/24 14:51 Review of Systems 2 Const: Denies: fever(s), chills, body aches or change in appetite ENMT: Denies: throat pain or dental pain Card: Denies: chest pain Resp: Denies: dyspnea GI: Reports: abdominal pain and nausea; Denies: vomiting or diarrhea : Reports: flank pain and dysuria Musc: Denies: neck pain or back pain Skin/Breast: Denies: rash Neuro: Denies: headache(s) PFSH ED 2 PFSH: Medical History Radial nerve palsy Hirsutism No pertinent past medical history neghx: htn,dm,thyroid,dvt/pe PCP: Dr. Etienne Anxiety Depression Endometriosis suspected at age of 14 by her first intel recruiter; again suspected by Tad in 2020. Not confirmed by surgery. Kidney stones Chronic migraine Pyelonephritis Nephrolithiasis H/O facial injury reconstructive facial surgery- as a young child-- several surgeries to repair Amenorrhea PCOS (polycystic ovarian syndrome) Surgical History S/P cholecystectomy 04/2010 Family History Mother Heart disease Hypertension Diabetes Stroke Hyperlipidemia Thyroid disease Uterine cancer, Onset Age: 27 Ovarian cancer, Onset Age: 27 Father Diabetes Stroke Hyperlipidemia Heart disease Cancer thyroid Grandmother Ovarian cancer maternal 28, paternal 27 Uterine cancer maternal and paternal 20's Cancer maternal-pancreatic Family/Other Ovarian cancer maternal aunts and cousins, all diagnosed prior to 30 years of age Uterine cancer maternal aunts and cousins Grandmother Cancer paternal-thyroid Other Chronic kidney disease (CKD) Lung disease Psychiatric illness Denies family history of Colon cancer CAD (coronary artery disease) Clotting disorder Dementia Breast cancer Anesthesia complication Bleeding disorder Social History Smoking and tobacco/nicotine status: unknown if used tobacco/nicotine Physical Exam 2 Const: COMMON NORMALS: no acute distress, patient oriented x3 and healthy appearing HENMT: COMMON NORMALS: normocephalic and atraumatic HEAD & SCALP: n ormocephalic and atraumatic Eye: COMMON NORMALS: conjunctivae normal CONJUNCTIVA: Yes conjunctivae normal Neck/C-Spine: COMMON NORMALS: full ROM and supple Chest: COMMONS NORMALS: normal inspection of the chest Resp: COMMON NORMALS: normal respiratory effort Cardio: COMMON NORMALS: regular rate, regular rhythm and No murmurs present (Cardio) RATE: regular rate RHYTHM: regular rhythm GI: COMMON NORMALS: Normal to inspection, nondistended, normoactive bowel sounds present, Soft to palpation, non-tender and no masses PALPATION: Yes Soft to palpation Extremity: COMMON NORMALS: normal to inspection and full ROM Neuro: COMMON NORMALS: patient oriented x3, moves all extremities and no focal motor deficits Psych: COMMON NORMALS: mental status grossly normal, Normal thought process present and cooperative THOUGHT PROCESS: Normal thought process present Skin: COMMON NORMALS: no rashes or lesions noted and no wounds GENERAL SKIN EXAM: no rashes or lesions noted Course 2 Vital Signs: Vital signs: Vital Signs Temperature 98.0 F 04/29/24 15:08 Pulse Rate 77 04/29/24 17:29 Respiratory Rate 20 H 04/29/24 16:11 Blood Pressure 142/105 04/29/24 17:29 Pulse Oximetry 99 04/29/24 17:29 Oxygen Delivery Me thod Room Air 04/29/24 17:29 MDM - Female Medical Decision Making Patient presents here has a UTI CT scan is negative she is stable for discharge we will prescribe antibiotics patient stable for discharge follow-up with PCP return if worsening. Medical Records I reviewed the patient's medical records. Lab Data I reviewed the patient's lab results. 04/29/24 15:24 04/29/24 15:24 Radiology Impressions Abdomen/Pelvis CT 04/29/24 15:37 IMPRESSION: 1. No acute pathology. 2. Minor findings noted above including hepatic steatosis and mild splenomegaly. Laboratory Results WBC 8.06 10^3/uL (3.29-11.43) 04/29/24 15:24 RBC 4.96 10^6/uL (3.85-5.65) 04/29/24 15:24 Hgb 14.20 g/dL (11.27-16.99) 04/29/24 15:24 Hct 42.3 % (36-47) 04/29/24 15:24 MCV 85.3 fl (85-98) 04/29/24 15: MCH 28.6 pg (27-33) 04/29/24 15: MCHC 33.6 g/dL (30-55) 04/29/24 15:24 RDW 13.1 % (12.1-15.1) 04/29/24 15: Plt Count 258 10^3/cmm (157-399) 04/29/24 15: MPV 11.3 fL (7.4-10.4) H 04/29/24 15: Neut % (Auto) 63.5 % 04/29/24: Lymph % (Auto) 29.5 % 04/29/24 15: [place] % (Auto) 5.6 % 04/29/24 15:24 Eos % (Auto) 0.6 % 04/29/24: Baso % (Auto) 0.6 % 04/29/24: Neut # (Auto) 5.11 10^3/uL (1.8-7.7) 04/29/24: Lymph # (Auto) 2.4 10^3/uL (0.8-4.8) 04/29/24: [place] # (Auto) 0.5 10^3/uL (0.2-0.9) 04/29/24 15:24 Eos # (Auto) 0.1 10^3/uL (0.0-0.8) 04/29/24: Baso # (Auto) 0.1 10^3/uL (0.0-0.1) 04/29/24 15:24 Nucleated RBC % (auto) 0 % 04/29/24 15: Nucleated RBCs # 0.0 /100WBC 04/29/24 15: Sodium 137 mmol/L (136-145) 04/29/24 15: Potassium 3.7 mmol/L (3.5-5.1) 04/29/24 15:24 Chloride 104 mmol/L (98-107) 04/29/24 15:24 Carbon Dioxide 21 mmol/L (22-29) L 04/29/24 15:24 Anion Gap 15.7 (5-19) 04/29/24 15:24 BUN 9 mg/dL (6-20) 04/29/24 15:24 Creatinine 0.7 mg/dL (0.5-0.9) 04/29/24 15:24 GFR Calculation 95.8 mL/min (90-130) 04/29/24 15:24 Glucose 100 mg/dL (65-115) 04/29/24 15:24 Calculated Osmolality 283 mOsm/kg (285-295) L 04/29/24 15:24 Calcium 9.3 mg/dL (8.5-10.5) 04/29/24 15:24 Total Bilirubin 0.9 mg/dL (0.15-1.2) 04/29/24 15:24 AST 18 U/L (0-32) 04/29/24 15:24 ALT 21 U/L (0-33) 04/29/24 15:24 Alkaline Phosphatase 110 U/L (35-105) H 04/29/24 15:24 Total Protein 7.5 g/dL (6.6-8.7) 04/29/24 15:24 Albumin 4.5 g/dL (3.5-5.2) 04/29/24 15:24 Globulin 3.0 g/dL (1.3-4.6) 04/29/24 15:24 Lipase 56 U/L (13-60) 04/29/24 15:24 HCG, Qual Negative (Negative) 04/29/24 15:24 Urine Color [place] (Yellow) A 04/29/24 17:14 Urine Appearance Cloudy (CLEAR) A 04/29/24 17:14 Urine pH 6.0 (5-7) 04/29/24 17:14 Ur Specific [place] 1.030 (1.005-1.030) 04/29/24 17:14 Urine Protein Trace (Negative) A 04/29/24 17:14 Urine Glucose (UA) Negative (Normal) 04/29/24 17:14 Urine Ketones 1+ (Negative) H 04/29/24 17:14 Urine Blood Negative (Negative) 04/29/24 17:14 Urine Nitrate Negative (Negative) 04/29/24 17:14 Urine Bilirubin 2+ (Negative) H 04/29/24 17:14 Urine Urobilinogen 1.0 mg/dL (Negative) 04/29/24 17:14 Ur Leukocyte Esterase 2+ (Negative) A 04/29/24 17:14 Urine RBC 0-4 /hpf (0-2) H 04/29/24 17:14 Urine WBC 25-40 /hpf (0-5) H 04/29/24 17:14 Ur Squamous Epith Cells 15-25 /hpf (0-5) H 04/29/24 17:14 Amorphous Sediment Not Reportable 04/29/24 17:14 Urine Bacteria 3+ /hpf (NONE) H 04/29/24 17:14 Hyaline Casts 5-10 /lpf H 04/29/24 17:14 Urine Mucus 1+ /hpf 04/29/24 17:14 All radiology interpretation(s) finalized by discharge Discharge Plan Discharge Patient Disposition: Home Clinical Impression: Acute cystitis Condition: Stable Prescriptions: New cephalexin 500 mg capsule 500 mg PO TID 7 Days Qty: 21 0RF naproxen [Naprosyn] 500 mg tablet 500 mg PO BID PRN (Reason: pain) Qty: 20 0RF No Action gabapentin 100 mg capsule 200 mg PO BID Qty: 180 2RF norethindrone (contraceptive) 0.35 mg tablet 0.35 mg PO DAILY Qty: 84 1RF venlafaxine 150 mg capsule,extended release 24hr 150 mg PO DAILY Qty: 60 1RF spironolactone 100 mg tablet 100 mg PO BID Qty: 120 1RF albuterol sulfate [Ventolin HFA] 90 mcg/actuation HFA aerosol inhaler 2 puff inhalation Q4H PRN (Reason: shortness of breath or wheezing) Qty: 8.5 0RF (DME) Cockup spliint, left wist See Rx Instructions .Route .MEDSUPPLY Qty: 1 0RF Rx Instructions: As directed fluticasone propionate [Flonase Allergy Relief] 50 mcg/actuation spray,suspension 2 spray intranasal DAILY PRN (Reason: allergy symptoms) Qty: 16 2RF Rx Instructions: administer into each nostril pantoprazole 40 mg tablet,delayed release (DR/EC) 40 mg PO DAILY Qty: 30 1RF buspirone 7.5 mg tablet 7.5 mg PO BID Qty: 30 0RF Rx Instructions: start no earlier than 03/26/24 loratadine 10 mg tablet 10 mg PO DAILY Qty: 90 0RF ondansetron HCl 4 mg tablet 4 mg PO Q8H PRN (Reason: nausea and vomiting) Qty: 30 0RF sumatriptan succinate 50 mg tablet See Rx Instructions .ROUTE .COMPLEX Qty: 9 0RF Dose Instruction: TAKE 1 TABLET BY MOUTH AT ONSET OF HEADACHE, IF NO RELIEF MAY REPEAT 1 TAB AFTER AT LEAST 2 HOURS, MAX 4 TABS PER 24 HOURS Rx Instructions: TAKE 1 TABLET BY MOUTH AT ONSET OF HEADACHE, IF NO RELIEF MAY REPEAT 1 TAB AFTER AT LEAST 2 HOURS, MAX 4 TABS PER 24 HOURS triamcinolone acetonide 0.1 % ointment 1 applic topical BID PRN (Reason: psoriasis) 14 Days Qty: 30 2RF Discharge Orders: Discharge ED (Routine); Ordered 04/29/24 Ordered By: Michelle Bolden Referrals: Paulie Etienne MD [Primary Care Provider] - 4-7 days Discharge Diet: Advance as tolerated Discharge Activity: Resume usual activity Patient Instructions: Urinary Tract Infection in Women (ED) Coding Level of Care Code ED [employer] for Audra Yang
[2024-04-29 15:42] LABS: HCG, Serum Qual Negative (Negative)
[2024-04-29 15:47] LABS: Alanine Aminotransferase 21 U/L (0-33); Albumin Level 4.5 g/dL (3.5-5.2); Alkaline Phosphatase 110 U/L (35-105); Anion Gap 15.7 (5-19); Aspartate Amino Transferase 18 U/L (0-32); Blood Urea Nitrogen 9 mg/dL (6-20); Calcium 9.3 mg/dL (8.5-10.5); Carbon Dioxide 21 mmol/L (22-29); Chloride 104 mmol/L (98-107); Creatinine Clr Calc Pharmacy 174.6732; Glomerular Filtration Rate 95.8 mL/min (90-130); Glucose 100 mg/dL (65-115); Lipase 56 U/L (13-60); Osmolality Calculated 283 mOsm/kg (285-295); Potassium 3.7 mmol/L (3.5-5.1); Sodium 137 mmol/L (136-145); Total Bilirubin 0.9 mg/dL (0.15-1.2); Total Protein 7.5 g/dL (6.6-8.7)
[2024-04-29 16:11] VITALS: RESP 20
[2024-04-29] MEDS: morphine 4 mg/mL SDV 1 mL IVP (16:11)
[2024-04-29] MEDS: ondansetron 2 mg/ML SDV 2 mL 4 MG IVP (16:11)
[2024-04-29 16:17] VITALS: BP 168/114; PULSE 77; O2SAT 99
[2024-04-29] MEDS: hyDRALAzine 20 mg/mL INJ 1 mL 10 MG IVP (16:38)
[2024-04-29 17:23] LABS: Bilirubin Urine 2+ (Negative); Blood Urine Negative (Negative); Glucose Urine UA Negative (Normal); Ketones Urine 1+ (Negative); Leukocyte Esterase Urine 2+ (Negative); Nitrate Urine Negative (Negative); Protein Urine Trace (Negative); Urine Appearance Cloudy (CLEAR)
[2024-04-29 17:29] VITALS: BP 142/105; PULSE 77; O2SAT 99
[2024-04-29 17:38] LABS: Add Urine Microscopic? YES; Bacteria Urine 3+ /hpf; Mucus Urine 1+ /hpf; RBC Urine 0-4 /hpf (0-2); Squamous Epithelial Cell Urine 15-25 /hpf (0-5); UA Manual Slide Review YES; Urine Color Orange (Yellow); WBC Urine 25-40 /hpf (0-5)
[2024-04-29 18:13] VITALS: BP 139/109; PULSE 76; O2SAT 98
[2024-04-29] MEDS: cefTRIAXone 1,000 mg SDV 1000 MG IVP (18:13)
[2024-04-29 18:15] VITALS: BP 139/109; PULSE 70; O2SAT 98
== END 2024-04-29 18:20 | disposition home or self-care (01) ==
PROVIDERS: Emergency Provider Emergency Medicine; PCP Family Medicine
DX: N30.00 Acute cystitis without hematuria (principal)
CPT/HCPCS: 36415; 74176; 80053; 81001; 83690; 84703; 85025; 96374; 96375; 99285; J0360; J0696; J2270; J2405

== ENCOUNTER → 2024-05-25 15:10 | Outpatient (BNVA) | payer OTHER, SELFPAY | PROVIDERS: PCP Family Medicine; Visit Provider Family Medicine | DX: R30.0 Dysuria (principal) | CPT/HCPCS: 81000; 87077; 87086; 87184 ==

== ENCOUNTER 2024-06-07 01:34 | Emergency (ER) | payer SELFPAY ==
[2024-06-07 01:44] VITALS: BP 180/106; PULSE 73; RESP 18; TEMP 36.7; O2SAT 100; BMI 47.2
[2024-06-07 01:47] VITALS: BP 180/106; PULSE 73; RESP 18; O2SAT 100
[2024-06-07 01:48] LABS: Glucose Point of Care 97 mg/dL (70-110)
--- NOTE | 2024-06-07 01:49 | ED_ITS ---
HPI - General Adult 2 General: Chief complaint: General Medical Stated complaint: BS High Time Seen by Provider: 06/07/24 01:40 History of Present Illness: 33-year-old female with a history of jose karissa, anxiety, depression and obesity presents emergency room with a feeling of wooziness and concern for high blood sugar. She checked her sugar at home and it was over 300. On presentation here it is in the 90s. No pain right now. No altered mental status. No focal motor deficits. No fevers Related Data Previous Rx's Medication Instructions Recorded albuterol sulfate 90 mcg/actuation 2 puff inhalation Q4H PRN 05/12/23 aerosol inhaler (Ventolin HFA) shortness of breath or wheezing #8.5 grams Cockup spliint, left wist #1 ea 12/05/23 fluticasone propionate 50 2 spray intranasal DAILY PRN 12/13/23 mcg/actuation nasal allergy symptoms #16 grams spray,suspension (Flonase Allergy Relief) norethindrone (contraceptive) 0.35 0.35 mg PO DAILY #84 tabs 01/25/24 mg tablet spironolactone 100 mg tablet 100 mg PO BID #120 tabs 03/19/24 venlafaxine 150 mg 150 mg PO DAILY #60 caps 03/19/24 capsule,extended release 24 hr gabapentin 100 mg capsule 200 mg (2 x 100 mg) PO BID #180 04/25/24 caps triamcinolone acetonide 0.1 % 1 applic topical BID PRN psoriasis 04/27/24 topical ointment 2 weeks #30 grams naproxen 500 mg tablet (Naprosyn) 500 mg PO BID PRN pain #20 tabs 04/29/24 cock up splint #1 ea 04/30/24 buspirone 7.5 mg tablet 7.5 mg PO BID #60 tabs 05/22/24 loratadine 10 mg tablet 10 mg PO DAILY #90 tabs 05/22/24 ondansetron HCl 4 mg tablet 4 mg PO Q8H PRN nausea and 05/22/24 vomiting #30 tabs pantoprazole 40 mg tablet,delayed 40 mg PO DAILY #30 tabs 05/22/24 release sumatriptan succinate 50 mg tablet See Rx Instructions .Route 05/22/24 .COMPLEX #9 tabs ciprofloxacin HCl 500 mg tablet 500 mg PO BID #20 tabs 05/25/24 tamsulosin 0.4 mg capsule (Flomax) 0.4 mg PO DAILY #15 caps 05/25/24 Allergies Allergy/AdvReac Type Severity Reaction Status Date / Time Bleach (Sodium Hypochlorite) Allergy Mild ALGY-Rash Verified 06/07/24 01:48 latex Allergy Mild rash Verified 06/07/24 01:48 hydromorphone [From Dilaudid] Allergy ADR-Itching Verified 06/07/24 01:48 Review of Systems 2 Narrative: Constitutional symptoms: Negative except as documented in HPI. Skin symptoms: Negative except as documented in HPI. Eye symptoms: Negative except as documented in HPI. ENMT symptoms: Negative except as documented in HPI. Respiratory symptoms: Negative except as documented in HPI. Cardiovascular symptoms: Negative except as documented in HPI. Gastrointestinal symptoms: Negative except as documented in HPI. Genitourinary symptoms: Negative except as documented in HPI. Musculoskeletal symptoms: Negative except as documented in HPI. Neurologic symptoms: Negative except as documented in HPI. Psychiatric symptoms: Negative except as documented in HPI. Endocrine symptoms: Negative except as documented in HPI. PFSH ED 2 PFSH: Medical History Pyelonephritis Radial nerve palsy Hirsutism No pertinent past medical history neghx: htn,dm,thyroid,dvt/pe PCP: Dr. Etienne Anxiety Depression Endometriosis suspected at age of 14 by her first station mechanic helper; again suspected by Albino in 2020. Not confirmed by surgery. Kidney stones Chronic migraine Nephrolithiasis H/O facial injury reconstructive facial surgery- as a young child-- several surgeries to repair Amenorrhea PCOS (polycystic ovarian syndrome) Surgical History S/P cholecystectomy 04/2010 Family History Mother Heart disease Hypertension Diabetes Stroke Hyperlipidemia Thyroid disease Uterine cancer, Onset Age: 27 Ovarian cancer, Onset Age: 27 Father Diabetes Stroke Hyperlipidemia Heart disease Cancer thyroid Grandmother Ovarian cancer maternal 28, paternal 27 Uterine cancer maternal and paternal 20's Cancer maternal-pancreatic Family/Other Ovarian cancer maternal aunts and cousins, all diagnosed prior to 30 years of age Uterine cancer maternal aunts and cousins Grandmother Cancer paternal-thyroid Other Chronic kidney disease (CKD) Lung disease Psychiatric illness Denies family history of Colon cancer CAD (coronary artery disease) Clotting disorder Dementia Breast cancer Anesthesia complication Bleeding disorder Social History Smoking and tobacco/nicotine status: unknown if used tobacco/nicotine Physical Exam 2 Narrative: EXAM NARRATIVE: General: Alert, no acute distress. Skin: Warm, dry. Head: Normocephalic, atraumatic. Neck: Supple, trachea midline. Eye: Extraocular movements are intact. Ears, nose, mouth and throat: mucosa moist. Cardiovascular: Regular, Normal peripheral perfusion. Respiratory: Lungs are clear to auscultation, respirations are non-labored, breath sounds are equal, Symmetrical chest wall expansion. Gastrointestinal: Soft, Nontender, Non distended Musculoskeletal: Normal ROM, no deformity. Neurological: Alert and oriented, No focal neurological deficit observed. Psychiatric: Cooperative, appropriate mood & affect. Course 2 Vital Signs: Vital signs: Vital Signs Temperature 98.0 F 06/07/24 01:44 Pulse Rate 73 06/07/24 01:47 Respiratory Rate 18 06/07/24 01:47 Blood Pressure 143/98 06/07/24 02:30 Pulse Oximetry 100 06/07/24 02:10 Oxygen Delivery Me thod Room Air 06/07/24 01:44 MDM - General Adult Medical Decision Making Lab Review: Laboratory results were reviewed and interpreted by myself the emergency room physician. Patient's [id number] glucose and glucose on her BMP were normal. Rest of lab work is unremarkable. A1c is 5. Which is low normal I reviewed the patient's medical record. Reexamination: Patient remained stable. No increased work of breathing. No altered mental status. No focal motor deficits. Assessment and plan: Feared complaint without diagnosis - Discharged home - Discussed plan with patient. Answered any questions. - Evaluation and treatment of this problem were appropriate in the emergency setting. Lab Data 06/07/24 02:00 06/07/24 02:00 Laboratory Results WBC 7.51 10^3/uL (3.29-11.43) 06/07/24 02:00 RBC 4.68 10^6/uL (3.85-5.65) 06/07/24 02:00 Hgb 13.70 g/dL (11.27-16.99) 06/07/24 02:00 Hct 41.3 % (36-47) 06/07/24 02:00 MCV 88.2 fl (85-98) 06/07/24 02:00 MCH 29.3 pg (27-33) 06/07/24 02:00 MCHC 33.2 g/dL (30-55) 06/07/24 02:00 RDW 12.7 % (12.1-15.1) 06/07/24 02:00 Plt Count 227 10^3/cmm (157-399) 06/07/24 02:00 MPV 11.8 fL (7.4-10.4) H 06/07/24 02:00 Neut % (Auto) 52.1 % 06/07/24 02:00 Lymph % (Auto) 39.3 % 06/07/24 02:00 [place] % (Auto) 7.7 % 06/07/24 02:00 Eos % (Auto) 0.1 % 06/07/24 02:00 Baso % (Auto) 0.5 % 06/07/24 02:00 Neut # (Auto) 3.91 10^3/uL (1.8-7.7) 06/07/24 02:00 Lymph # (Auto) 3.0 10^3/uL (0.8-4.8) 06/07/24 02:00 [place] # (Auto) 0.6 10^3/uL (0.2-0.9) 06/07/24 02:00 Eos # (Auto) 0.0 10^3/uL (0.0-0.8) 06/07/24 02:00 Baso # (Auto) 0.0 10^3/uL (0.0-0.1) 06/07/24 02:00 Nucleated RBC % (auto) 0 % 06/07/24 02:00 Nucleated RBCs # 0.0 /100WBC 06/07/24 02:00 Sodium 141 mmol/L (136-145) 06/07/24 02:00 Potassium 3.8 mmol/L (3.5-5.1) 06/07/24 02:00 Chloride 106 mmol/L (98-107) 06/07/24 02:00 Carbon Dioxide 21 mmol/L (22-29) L 06/07/24 02:00 Anion Gap 17.8 (5-19) 06/07/24 02:00 BUN 8 mg/dL (6-20) 06/07/24 02:00 Creatinine 0.7 mg/dL (0.5-0.9) 06/07/24 02:00 GFR Calculation 95.8 mL/min (90-130) 06/07/24 02:00 Glucose 107 mg/dL (65-115) 06/07/24 02:00 POC Glucose 97 mg/dL (70-110) 06/07/24 01:46 Estimat Average Glucose 97 06/07/24 02:00 Hemoglobin A1c 5.0 % (4.0-6.0) 06/07/24 02:00 Calculated Osmolality 291 mOsm/kg (285-295) 06/07/24 02:00 Lactic Acid 2.0 mmol/L (0.5-2.2) 06/07/24 02:00 Calcium 9.5 mg/dL (8.5-10.5) 06/07/24 02:00 Total Bilirubin 0.7 mg/dL (0.15-1.2) 06/07/24 02:00 AST 18 U/L (0-32) 06/07/24 02:00 ALT 21 U/L (0-33) 06/07/24 02:00 Alkaline Phosphatase 90 U/L (35-105) 06/07/24 02:00 C-Reactive Protein 10.7 mg/L (0.0-4.9) H 06/07/24 02:00 Total Protein 7.1 g/dL (6.6-8.7) 06/07/24 02:00 Albumin 4.2 g/dL (3.5-5.2) 06/07/24 02:00 Globulin 2.9 g/dL (1.3-4.6) 06/07/24 02:00 Lipase 45 U/L (13-60) 06/07/24 02:00 No radiology studies performed this visit Discharge Plan Discharge Patient Disposition: Home Clinical Impression: Feared complaint without diagnosis Condition: Stable Prescriptions: No Action gabapentin 100 mg capsule 200 mg PO BID Qty: 180 2RF norethindrone (contraceptive) 0.35 mg tablet 0.35 mg PO DAILY Qty: 84 1RF venlafaxine 150 mg capsule,extended release 24hr 150 mg PO DAILY Qty: 60 1RF spironolactone 100 mg tablet 100 mg PO BID Qty: 120 1RF ciprofloxacin HCl 500 mg tablet 500 mg PO BID Qty: 20 0RF tamsulosin [Flomax] 0.4 mg capsule 0.4 mg PO DAILY Qty: 15 0RF albuterol sulfate [Ventolin HFA] 90 mcg/actuation HFA aerosol inhaler 2 puff inhalation Q4H PRN (Reason: shortness of breath or wheezing) Qty: 8.5 0RF (DME) Cockup spliint, left wist See Rx Instructions .Route .MEDSUPPLY Qty: 1 0RF Rx Instructions: As directed fluticasone propionate [Flonase Allergy Relief] 50 mcg/actuation spray,suspension 2 spray intranasal DAILY PRN (Reason: allergy symptoms) Qty: 16 2RF Rx Instructions: administer into each nostril triamcinolone acetonide 0.1 % ointment 1 applic topical BID PRN (Reason: psoriasis) 14 Days Qty: 30 2RF (DME) cock up splint See Rx Instructions .Route .MEDSUPPLY Qty: 1 0RF Rx Instructions: As directed buspirone 7.5 mg tablet 7.5 mg PO BID Qty: 60 0RF Rx Instructions: start no earlier than 03/26/24 loratadine 10 mg tablet 10 mg PO DAILY Qty: 90 0RF ondansetron HCl 4 mg tablet 4 mg PO Q8H PRN (Reason: nausea and vomiting) Qty: 30 0RF pantoprazole 40 mg tablet,delayed release (DR/EC) 40 mg PO DAILY Qty: 30 1RF sumatriptan succinate 50 mg tablet See Rx Instructions .ROUTE .COMPLEX Qty: 9 0RF Dose Instruction: TAKE 1 TABLET BY MOUTH AT ONSET OF HEADACHE, IF NO RELIEF MAY REPEAT 1 TAB AFTER AT LEAST 2 HOURS, MAX 4 TABS PER 24 HOURS Rx Instructions: TAKE 1 TABLET BY MOUTH AT ONSET OF HEADACHE, IF NO RELIEF MAY REPEAT 1 TAB AFTER AT LEAST 2 HOURS, MAX 4 TABS PER 24 HOURS naproxen [Naprosyn] 500 mg tablet 500 mg PO BID PRN (Reason: pain) Qty: 20 0RF Discharge Orders: Discharge ED (Routine); Ordered 06/07/24 Ordered By: Adry Rios Referrals: Paulie Etienne MD [Primary Care Provider] - Discharge Diet: Usual diet Discharge Activity: Increase activity as tolerated Patient Instructions: Opioid Safety, Pain Management Activity Restrictions/Additional Instructions: Thank you for choosing [facility] for your healthcare needs today. Please realize this is an emergency room and that we are providing you with a medical screening exam and this may not be complete and all inclusive of all the testing and or work up that you may need to determine your ailment or severity of your illness. You have been screened and evaluated and felt safe for discharge. Health conditions do change or evolve sometimes and as such it is important that you follow up with your Primary Doctor to be re checked, 3-5 days is a general good time frame for follow up. You are always welcome to return to the ED for re assessment if your symptoms are worsening or you have new concerns Coding Level of Care Code ED [employer] Supervisor for Audra Yang
[2024-06-07] MEDS: ondansetron 2 mg/ML SDV 2 mL 8 MG IVP (01:59)
[2024-06-07] MEDS: ketorolac 30 mg/mL INJ IVP (02:01)
[2024-06-07 02:05] VITALS: BP 162/106; O2SAT 98
[2024-06-07 02:09] LABS: Basophils % 0.5 %; Eosinophils % 0.1 %; Hematocrit 41.3 % (36-47); Lymphocytes % 39.3 %; Mean Corpuscular HGB Conc 33.2 g/dL (30-55); Mean Corpuscular Hemoglobin 29.3 pg (27-33); Mean Corpuscular Volume 88.2 fl (85-98); Mean Platelet Volume 11.8 fL (7.4-10.4); Monocytes # 0.6 10^3/uL (0.2-0.9); Monocytes % 7.7 %; Neutrophils # 3.91 10^3/uL (1.8-7.7); Neutrophils % 52.1 %; Nucleated Red Blood Cells % 0 %; Platelet Count 227 10^3/cmm (157-399); Red Blood Count 4.68 10^6/uL (3.85-5.65); Red Cell Distribution Width 12.7 % (12.1-15.1); White Blood Count 7.51 10^3/uL (3.29-11.43)
[2024-06-07 02:10] VITALS: BP 162/106; O2SAT 100
[2024-06-07 02:27] LABS: Estmated Average Glucose 97
[2024-06-07 02:30] VITALS: BP 143/98
[2024-06-07 02:32] LABS: Alanine Aminotransferase 21 U/L (0-33); Albumin Level 4.2 g/dL (3.5-5.2); Alkaline Phosphatase 90 U/L (35-105); Anion Gap 17.8 (5-19); Aspartate Amino Transferase 18 U/L (0-32); C Reactive Protein 10.7 mg/L (0.0-4.9); Carbon Dioxide 21 mmol/L (22-29); Chloride 106 mmol/L (98-107); Globulin 2.9 g/dL (1.3-4.6); Glucose 107 mg/dL (65-115); Lipase 45 U/L (13-60); Potassium 3.8 mmol/L (3.5-5.1); Sodium 141 mmol/L (136-145); Total Protein 7.1 g/dL (6.6-8.7)
[2024-06-07 02:46] LABS: Blood Urea Nitrogen 8 mg/dL (6-20); Calcium 9.5 mg/dL (8.5-10.5); Creatinine Clr Calc Pharmacy 174.8012; Glomerular Filtration Rate 95.8 mL/min (90-130); Osmolality Calculated 291 mOsm/kg (285-295); Total Bilirubin 0.7 mg/dL (0.15-1.2)
[2024-06-07 03:16] LABS: HCG Qualitative Urine. Negative (Negative)
[2024-06-07 03:21] VITALS: BP 144/115; PULSE 80; O2SAT 97
[2024-06-07 03:25] LABS: Bilirubin Urine Negative (Negative); Blood Urine Negative (Negative); Glucose Urine UA Negative (Normal); Ketones Urine Negative (Negative); Leukocyte Esterase Urine Negative (Negative); Nitrate Urine Negative (Negative); Protein Urine Negative (Negative); Specific Gravity, Urine 1.009 (1.005-1.030); Urine Appearance Clear (CLEAR)
[2024-06-07 03:32] LABS: Bacteria Urine None Seen /hpf; Hyaline Casts Urine 0-4 /lpf; RBC Urine 0-2 /hpf (0-2); Squamous Epithelial Cell Urine 0-5 /hpf (0-5); WBC Urine 0-5 /hpf (0-5)
[2024-06-07 03:33] LABS: Urine Color Yellow (Yellow)
== END 2024-06-07 02:55 | disposition home or self-care (01) ==
PROVIDERS: Emergency Provider Emergency Medicine; PCP Family Medicine
DX: Z03.89 Encounter for observation for other suspected diseases and conditions ruled out (principal)
CPT/HCPCS: 36415; 36416; 80053; 81001; 81025; 82962; 83036; 83605; 83690; 85025; 86140; 87040; 96374; 96375; 99284; J1885; J2405

== ENCOUNTER → 2024-07-11 16:33 | Outpatient (BNVA) | payer OTHER, SELFPAY | PROVIDERS: PCP Family Medicine; Visit Provider Nurse Practitioner Women's Health | DX: R10.2 Pelvic and perineal pain (principal); G89.29 Other chronic pain; Z01.419 Encounter for gynecological examination (general) (routine) without abnormal findings; R30.0 Dysuria; N80.9 Endometriosis, unspecified; E28.2 Polycystic ovarian syndrome; Z30.011 Encounter for initial prescription of contraceptive pills | CPT/HCPCS: 87086; 87624 ==